=== PATIENT | female | born 1995 | race Hispanic/Latino ===

== ENCOUNTER 2024-04-21 16:32 | Emergency (ER) | payer OTHER ==
[~2024-04-21] VITALS: Ht 170.2 cm; Wt 75.7 kg
[2024-04-21 17:25] LABS: BASOPHILS % 0.3 % (0.0-1.0); EOSINOPHILS # (AUTO) 0.1 (0.0-0.4); EOSINOPHILS % 1.5 % (0.0-6.0); HEMATOCRIT 43.6 % (34.2-44.1); HEMOGLOBIN 14.2 g/dL (12.0-16.0); LYMPHOCYTES # (AUTO) 1.3 (1.0-3.2); LYMPHOCYTES % 13.8 % (18.0-39.1); MEAN CORPUSCULAR HEMOGLOBIN 30.4 pg (28-32); MEAN CORPUSCULAR HGB CONC 32.6 g/dL (31-35); MEAN CORPUSCULAR VOLUME 93.4 fL (81-99); MONOCYTES # (AUTO) 0.7 (0.2-0.8); MONOCYTES % 7.2 % (4.4-11.3); NEUTROPHILS # (AUTO) 7.4 (2.1-6.9); PLATELET COUNT 207 x10e3/uL (140-360); RED BLOOD COUNT 4.67 x10e6/uL (3.6-5.1); RED CELL DISTRIBUTION WIDTH 11.7 % (11.7-14.4); WHITE BLOOD COUNT 9.62 x10e3/uL (4.8-10.8)
[2024-04-21 17:32] LABS: BILIRUBIN,URINE NEGATIVE (NEGATIVE); CLARITY,URINE SL CLOUDY (CLEAR); COLOR,URINE YELLOW (YELLOW); GLUCOSE, URINE NEGATIVE (NEGATIVE); KETONES,URINE NEGATIVE (NEGATIVE); LEUKOCYTE ESTERASE ,URINE TRACE (NEGATIVE); NITRITE,URINE NEGATIVE (NEGATIVE); PH,URINE 7 (5 - 7); PROTEIN,URINE DIPSTICK NEGATIVE (NEGATIVE); URINE UROBILINOGEN 1 mg/dL (0.2 - 1)
[2024-04-21 17:41] LABS: ALANINE AMINOTRANSFERASE 15 IU/L (0-55); ALBUMIN/GLOBULIN RATIO 1.2 (0.8-2.0); ALKALINE PHOSPHATASE 58 IU/L (40-150); ANION GAP 14.4 mmol/L (8-16); BILIRUBIN,TOTAL 0.5 mg/dL (0.2-1.2); BLOOD UREA NITROGEN 9 mg/dL (7-26); BUN/CREATININE RATIO 10 (6-25); CALCIUM 9.4 mg/dL (8.4-10.2); CARBON DIOXIDE 23 mmol/L (22-29); CHLORIDE 105 mmol/L (98-107); CREATININE, SERUM 0.93 mg/dL (0.57-1.11); EST GLOMERULAR FILTRATION RATE 85 ML/MIN (>=60); GLUCOSE 96 mg/dL (74-118); SODIUM 139 mmol/L (136-145); TOTAL PROTEIN 7.4 g/dL (6.5-8.1)
[2024-04-21 17:44] LABS: POTASSIUM 3.4 mmol/L (3.5-5.1)
[2024-04-21 17:47] LABS: BACTERIA,URINE MANY /HPF; EPITHELIAL CELLS,URINE RARE /LPF; WBC,URINE (MAN) 0-5 /HPF (0-5)
[2024-04-21] MEDS: ACETAMINOPHEN 325 MG TAB PO ONE (17:51)
[2024-04-21] MEDS: SODIUM CHLORIDE 0.9% 1000ML 1,000 ML IV STA (17:51)
[2024-04-21] MEDS: ONDANSETRON HCL INJ 2MG/ML 2ML 2 MG/ML VIAL IV STA (17:52)
[2024-04-21 18:22] VITALS: PULSE 97; RESP 16; TEMP 101.5; O2SAT 99
[2024-04-21] MEDS ORDERED: CEFDINIR300 MG PO (18:56)
[2024-04-21] MEDS ORDERED: ONDANSETRON ODT4 MG PO (18:56)
[2024-04-21] MEDS: IBUPROFEN 600 MG TAB PO STA (19:18)
== END 2024-04-21 19:19 | disposition home or self-care (01) ==
LOC: ER 16:54
DX: R50.9 Fever, unspecified (principal); B34.9 Viral infection, unspecified; H92.02 Otalgia, left ear; N39.0 Urinary tract infection, site not specified
CPT/HCPCS: 36415; 71045; 74176; 80053; 81001; 84702; 85025; 87086; 87186; 99284; J2405; J7030